=== PATIENT | male | born 1960 | race Caucasian/White ===

== ENCOUNTER 2017-08-31 08:44 | Emergency (ER) | payer SELFPAY ==
[~2017-08-31] VITALS: Ht 165.1 cm; Wt 83.9 kg
[~2017-08-31 08:44] MED LIST: CEP500 PO; NO ROUTINE MEDS; PER PO; SILV20CR20 TP
--- NOTE | 2017-08-31 08:50 | ER Report ---
History and Physical Allergies: Coded Allergies: No Known Drug Allergies (Verified , 07/15/11) Home Meds Reported Medications Cephalexin Monohydrate (Keflex) 500 Mg Cap, 500 MG PO TID, #30 0 Refills 07/15/11 Oxycodone/Acetaminophen (OXYCODONE/ACETAMINOPHEN 5MG/325 MG) 5 Mg/325 Mg Tab, 1 - 2 TAB PO Q4-6H Y, 0 Refills 07/15/11 [No Routine Meds] No Conflict Check, 0 Refills 07/15/11 Past Medical/Surgical History Past medical history for prior ED visit for alcohol intoxication. Hx Smoking: No Hx Alcohol Use: No Constitutional Vital Sign - Last 24 Hours 08/31/17 08:58 Temp 98.7 Pulse 100 Resp 18 B/P (MAP) 131/91 Pulse Ox 94 O2 Delivery Room Air Depart Departure Latest Vital Signs Vital Signs Date Time Temp Pulse Resp B/P (MAP) Pulse Ox O2 Delivery O2 Flow Rate FiO2 08/31/17 08:58 98.7 100 18 131/91 94 Room Air RON BAILEY MD Aug 31, 2017 08:50
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
[2017-08-31] MEDS ORDERED: APAP/HYDROCODONE 325/5 TAB PO ONE (10:30)
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
[2017-08-31 11:30] VITALS: BP 122/84
[2017-08-31] MEDS ORDERED: LOR5/325 PO (11:40)
== END 2017-08-31 11:48 | disposition home or self-care (01) ==
LOC: ER 09:09
DX: S00.83XA Contusion of other part of head, initial encounter (principal); S60.221A Contusion of right hand, initial encounter; S20.219A Contusion of unspecified front wall of thorax, initial encounter; Y04.2XXA Assault by strike against or bumped into by another person, initial encounter
CPT/HCPCS: 70450; 70486; 71046; 72125; 99283